=== PATIENT | male | born 1940 | race Caucasian/White ===

== ENCOUNTER 2018-05-13 06:47 | Inpatient (IN) ==
--- NOTE | 2018-05-10 15:44 | EKG Report ---
Test Performed on : 05/10/2018 3:17:06 PM Test Reason : PAT Blood Pressure : / mmHG Vent. Rate : 067 BPM Atrial Rate : 067 BPM P-R Int : 188 ms QRS Dur : 076 ms QT Int : 364 ms P-R-T Axes : 064 058 057 degrees QTc Int : 384 ms Normal sinus rhythm. Normal ECG No previous ECGs available Confirmed by Nikole VINCENT, Corye Brito ([id number]) on 05/11/2018 6:56:10 AM
[2018-05-10 16:03] LABS: BASO# 0.02 X1000 (0.0-0.2); BASO% 0.2 % (0.0-0.8); EOS# 0.24 X1000 (0.0-0.7); EOS% 2.8 % (0.0-10.0); HEMATOCRIT 40.1 % (42.0-52.0); HEMOGLOBIN 12.8 g/dL (14.0-18.0); IMM GRAN# 0.03 X1000 (0.0-0.04); IMM GRAN% 0.4 % (0.0-0.5); LYMPH# 1.62 X1000 (1.2-3.4); LYMPH% 18.9 % (20.5-51.1); MCH 29.6 PG (27-31); MCHC 31.9 g/dL (33-37); MCV 92.6 FL (81-99); MONO# 0.66 X1000 (0.11-0.59); MONO% 7.7 % (1.7-9.3); MPV 9.9 FL (7.4-10.4); NEUT# 5.98 X1000 (1.4-6.5); PLT 250 X1000 (130-400); RBC 4.33 XMIL (4.7-6.1); RDW 13.8 % (11.5-14.5); WBC 8.55 X1000 (4.8-10.8)
[2018-05-10 16:42] LABS: POTASSIUM 5.3 mmol/L (3.5-5.1)
[2018-05-10 16:43] LABS: CALCIUM 9.4 mg/dL (8.8-10.2); CREATININE 1.2 mg/dL (0.7-1.2)
[2018-05-13] MEDS ORDERED: NITROGLYCERIN 50 MG/D5W 50 MG/250 ML IV.SOLN ONE (06:51)
[2018-05-13] MEDS ORDERED: LR 1,000 ML ONE ×2 (07:07→10:47)
[2018-05-13] MEDS ORDERED: KEFZOL 1 GM/D5W 1 GM/50 ML IVPB ONE (07:07)
[2018-05-13] MEDS ORDERED: ZIAC 5/6.25 MG PO ONE (07:26)
[2018-05-13] MEDS ORDERED: TOPROL XL PO ONE (07:26)
[2018-05-13] MEDS ORDERED: ROBINUL ONE ×2 (07:28→09:17)
[2018-05-13] MEDS ORDERED: NORCURON ONE (07:28)
[2018-05-13] MEDS ORDERED: STERILE WATER INJ. ONE (07:28)
[2018-05-13] MEDS ORDERED: XYLOCAINE-MPF 2% ONE ×2 (07:28→10:22)
[2018-05-13] MEDS ORDERED: QUELICIN (DOSE) ONE (07:28)
[2018-05-13] MEDS ORDERED: FENTANYL ONE (07:29)
[2018-05-13] MEDS ORDERED: DIPRIVAN 1% ONE (07:29)
[2018-05-13] MEDS ORDERED: KEFZOL ONE (07:33)
[2018-05-13] MEDS ORDERED: NS 1,000 ML ONE (07:34)
[2018-05-13] MEDS ORDERED: NS 500 ML ONE (07:34)
[2018-05-13] MEDS ORDERED: SENSORCAINE-MPF 0.5%/EPI 1:200,000 ONE (07:34)
[2018-05-13] MEDS ORDERED: HEPARIN ONE (07:34)
[2018-05-13] MEDS ORDERED: XYLOCAINE 1% ONE (07:34)
[2018-05-13] MEDS ORDERED: DECADRON ONE (09:17)
[2018-05-13] MEDS ORDERED: ZOFRAN ONE (09:17)
[2018-05-13] MEDS ORDERED: NEOSTIGMINE ONE (09:18)
[2018-05-13] MEDS ORDERED: ZOFRAN IV PRN (11:44)
[2018-05-13] MEDS: ULTRAM PO PRN ×2 (12:08→21:58)
[2018-05-13] MEDS: OFIRMEV 1000 MG/ISOTONIC SOLN 1,000 MG/100 ML BOTTLE IV SCH ×2 (12:08→17:07)
[2018-05-13] MEDS: LR 1,000 ML IV SCH (12:13)
--- NOTE | 2018-05-13 12:16 | OPERATIVE NOTE ---
PROCEDURE DATE: 05/13/2018 PROCEDURE PERFORMED: Right carotid endarterectomy with patch angioplasty. SURGEON: Pancho Tolentino MD. CHIEF DIVERSITY OFFICER: Kareem Roth RN. PREOPERATIVE DIAGNOSIS: High-grade right internal carotid stenosis. POSTOPERATIVE DIAGNOSIS: High-grade right internal carotid stenosis. DESCRIPTION OF PROCEDURE: After satisfactory general endotracheal anesthesia was achieved, the patient was placed in reverse Trendelenburg position and the head was turned to the left. We ultrasounded the neck pre-prep, identified the level of the bifurcation. We then prepped the right side of the neck and upper chest with sterile fashion and draped in a sterile fashion. We marked the skin line that we wanted to use and anesthetized the skin with 0.5 Marcaine with epinephrine. We then made a transverse incision in the area that was anesthetized. We carried our incision through the platysma. We then dissected along the anterior border of the sternocleidomastoid muscle. Crossing veins were ligated and divided. We exposed the common carotid, surrounded the common carotid with an umbilical tape. 5000 units of heparin were given. We dissected out the carotid bulb and the internal carotid. We surrounded the external carotid and superior thyroid the large vessel loop. The internal carotid was surrounded with a small vessel loops. After the heparin had circulated for 5 minutes, we then clamped off the branch vessels and clamped off the common carotid under 2.5 loupe magnification. We then incised the common carotid and extended with the Parry scissors through the severe plaque into the internal carotid. We placed a 4 to 3 mm Sundt shunt, and clamp time was less than a minute. We then used a Sumner tool to raise the plaque out of the artery. We did an eversion technique out of the external and then had a good taper point in the internal. We irrigated out the endarterectomized vessel with heparinized saline, removed all leaflets we could identify. We did place one 7-0 Prolene tacking stitch in the internal at about is 3 o'clock. No further stitches appeared necessary. We then obtained the 1 x 6 bovine patch and then began patch angioplasty using a 6-0 Prolene running stitch. As we neared completion of the angioplasty, we back bled the external, removed the shunt from the internal and back bled it, then removed the shunt from the common and forebled it. Once again, clamped off the vessels. We then finished the patch angioplasty. We held the internal closed, and then opened the external then the common. We then opened the internal. We required a couple of additional stitches to achieve complete hemostasis around the patch angioplasty. We then used some Gelfoam. We irrigated out the wound with Kefzol-impregnated saline. We placed a Lavelle drain within the wound, secured at the skin with 2-0 silk. Hemostasis was satisfactory. We removed the Gel-Foam. We then proceeded to close the platysma with a 3-0 Polysorb running. Once again, used 0.5 Marcaine with epinephrine, subcutaneous tissue and skin, and then closed the skin with a 4-0 Polysorb subcuticular stitch. Telfa and a sterile OpSite was applied. He tolerated it well. Was sent to the recovery room and was awakened at the time of this dictation. cc: Pancho Tolentino MD
[2018-05-14] MEDS: LR 1,000 ML IV SCH (00:01)
[2018-05-14] MEDS: OFIRMEV 1000 MG/ISOTONIC SOLN 1,000 MG/100 ML BOTTLE IV SCH ×2 (00:01→06:10)
[2018-05-14 05:54] LABS: HEMATOCRIT 32.7 % (42.0-52.0); HEMOGLOBIN 10.6 g/dL (14.0-18.0); MCH 29.9 PG (27-31); MCHC 32.4 g/dL (33-37); MCV 92.1 FL (81-99); MPV 10.7 FL (7.4-10.4); RBC 3.55 XMIL (4.7-6.1); RDW 13.8 % (11.5-14.5); WBC 11.56 X1000 (4.8-10.8)
[2018-05-14 06:08] LABS: AGAP 12; BUN 26 mg/dL (8-22); CALCIUM 8.5 mg/dL (8.8-10.2); CHLORIDE 111 mmol/L (98-107); COSMO 289; CREATININE 1.1 mg/dL (0.7-1.2); ESTIMATED GFR > 60; GLUCOSE 120 mg/dL (70-104); POTASSIUM 4.2 mmol/L (3.5-5.1); SODIUM 142 mmol/L (136-145); TCO2 19 mmol/L (25-35)
[2018-05-14] MEDS ORDERED: SALINE LOCK IV FLUID XX ONE (07:16)
[2018-05-14] MEDS ORDERED: NORCO-7.5 PO PRN (07:17)
--- NOTE | 2018-05-14 07:33 | GENERAL SURGERY PROGRESS NOTE ---
DATE: 05/14/2018 Mr. Ragland is doing well. He is neurologically intact. His trachea is midline. No significant neck swelling is present. He is afebrile, heart rate 55, blood pressure 123/60. The plan is remove his drain, removed his arterial line and move him up to a regular room and advance his diet. cc: Pancho Tolentino MD
[2018-05-14] MEDS: PRAVACHOL PO SCH (08:34)
[2018-05-14] MEDS: ASPIRIN PO SCH (08:34)
[2018-05-14] MEDS: TOPROL XL PO SCH (08:34)
[2018-05-14] MEDS: ZIAC 5/6.25 MG PO SCH (08:37)
[2018-05-14] MEDS: LOTREL 5/20 MG PO SCH (08:37)
[2018-05-14] MEDS: LINACLOTIDE PO SCH (08:37)
[2018-05-14] MEDS ORDERED: LINACLOTIDE 72 MCG PO SCH (09:00)
[2018-05-15 09:56] VITALS: BP 119/48
[2018-05-15] MEDS: ASPIRIN PO SCH (10:27)
[2018-05-15] MEDS: PRAVACHOL PO SCH (10:27)
[2018-05-15] MEDS: TOPROL XL PO SCH (10:27)
[2018-05-15] MEDS: LOTREL 5/20 MG PO SCH (10:28)
[2018-05-15] MEDS: LINACLOTIDE PO SCH (10:40)
[2018-05-15] MEDS: ZIAC 5/6.25 MG PO SCH (10:40)
--- NOTE | 2018-05-15 13:34 | GENERAL SURGERY PROGRESS NOTE ---
DATE: 05/15/2018 SUBJECTIVE: Mr. Ragland is doing generally well. His trachea is in the midline. Neurologically he is fine. He was to go home. His hemodynamics are good. PLAN: To discharge him today. He will resume his usual medicines. He will resume Xarelto tomorrow, the . He will return to see me in the office in a week. cc: Pancho Tolentino MD
== END 2018-05-15 11:38 | disposition home or self-care (01) | DRG 39 ==
LOC: SURHOLD 06:47 → ICU 11:37 → 4N 05-14 14:02
PROVIDERS: ADMIT Surgery; ATTEND Surgery
CPT/HCPCS: 80048; 85025; 85027; 88304; 93005; 93010; 94761; A9270; C1763; J0131; J0330; J0690; J1100; J1644; J2405; J3010; J7030; J7040; J7120